=== PATIENT | female | born 1990 | race Caucasian/White ===

== ENCOUNTER 2021-01-16 12:13 | Outpatient (REF) | payer OTHER, SELFPAY | END 2021-01-16 12:14 | disposition home or self-care (01) | LOC: HO.LAB 12:13 | PROVIDERS: Visit Provider Internal Medicine | DX: Z20.822 Contact with and (suspected) exposure to COVID-19 (principal) | CPT/HCPCS: 36415; C9803; U0003; U0005 ==

== ENCOUNTER 2021-03-21 15:04 | Outpatient (REF) | payer OTHER, SELFPAY | END 2021-03-21 15:05 | disposition home or self-care (01) | LOC: HO.LAB 15:04 | PROVIDERS: Visit Provider Internal Medicine | DX: Z20.822 Contact with and (suspected) exposure to COVID-19 (principal) | CPT/HCPCS: C9803; U0003; U0005 ==

== ENCOUNTER 2021-04-05 15:08 | Outpatient (REF) | payer OTHER, SELFPAY ==
[2021-04-05 15:44] LABS: COVID-19 Test Negative (Negative)
== END 2021-04-05 15:09 | disposition home or self-care (01) ==
LOC: HO.LAB 15:08
PROVIDERS: Visit Provider Internal Medicine
DX: Z20.822 Contact with and (suspected) exposure to COVID-19 (principal)
CPT/HCPCS: 36415; 87635; C9803

== ENCOUNTER 2021-11-14 11:36 | Outpatient (REF) | payer OTHER, SELFPAY | END 2021-11-14 11:37 | disposition home or self-care (01) | LOC: HO.LAB 11:36 | PROVIDERS: Visit Provider Internal Medicine | DX: Z13.89 Encounter for screening for other disorder (principal) ==

== ENCOUNTER 2022-02-26 09:20 | Emergency (ER) | payer OTHER, SELFPAY ==
[2022-02-26 09:29] VITALS: BP 116/76; PULSE 102; RESP 18; TEMP 36.6; O2SAT 96; BMI 24.0
[2022-02-26 09:59] LABS: COVID-19 Test Negative (Negative); IDNOW Serial# 16C4AD1C
[2022-02-26 10:06] LABS: IDNOW Serial# 08D9AD1C; Influenza A Positive (Negative); Influenza B2 Negative (Negative); Strep A Nucleic Acid Negative (Negative)
--- NOTE | 2022-02-26 10:09 | ED_ITS ---
HPI - URI/Sore Throat General Chief Complaint: Upper Respiratory Symptoms Stated Complaint: Sore throat/Body aches Time Seen by Provider: 02/26/22 10:09 Source: patient Mode of arrival: ambulatory Limitations: no limitations History of Present Illness HPI Narrative: 31-year-old otherwise healthy female presents to the ER with 1 day of cough, sore throat, headache, body aches and chills. She states her symptoms started late last night and were much worse when she woke up today. She is vaccinated for COVID-19 but not the flu. She denies any known sick contacts. She denies any shortness of breath or chest pain. She is unsure if she has had any fevers but she reports chills and not feeling well. She reports diffuse body aches. She has had some nausea and 1 episode of diarrhea but no vomiting or abdominal pain. MD elicited complaint: fever, sore throat and other (Body aches) Onset (ago): hour(s) (12) Consistency: progressively worsening Severity: moderate Description of mucous: clear Able to tolerate fluids by mouth: Yes Exacerbating factors: nothing Relieving factors: nothing Associated symptoms: chills, myalgias, headache, rhinorrhea, nasal congestion, sore throat, cough, nausea and diarrhea Treatments prior to arrival: none Related Data Previous Rx's Medication Instructions Recorded norelgestromin 150 mcg-e.estradiol 1 patch TRANSDERMAL QWEEK #3 ea 08/10/21 35 mcg/24 hr weekly transderm patch (Xulane) oseltamivir 75 mg capsule (Tamiflu) 75 mg PO BID 5 Days #10 cap 02/26/22 Allergies Allergy/AdvReac Type Severity Reaction Status Date / Time No Known Allergies Allergy Verified 02/26/22 09:29 Review of Systems Review of Systems: Constitutional: No Fever, + Chills ENT/Mouth: + sore throat, + Rhinorrhea, No Swallowing Difficulty Eyes: No Eye Pain, No Swelling, No Redness Cardiovascular: No Chest Pain, No SOB Respiratory: + Cough, No Sputum, No Wheezing, No dyspnea Gastrointestinal: No Nausea, No Vomiting, + Diarrhea, No abdominal Pain Genitourinary: No Dysuria Musculoskeletal: No joint pain, + Myalgias Skin: No Skin Lesions, No rash Neuro: No Weakness, No Numbness, No Dizziness, + Headache Heme/Lymph: No Bruising, No Lymphadenopathy PMFSH Past Medical History Medical History (Updated 02/26/22 @ 10:09 by GISSELLE Chamberlain) No pertinent past medical history Social History Social History Advance Directives: No Advance Directives Information Provided: No Patient : No Physical Exam Vital Signs: Vital Signs: Last Vital Signs Temp 97.8 F 02/26/22 09:29 Pulse 102 H 02/26/22 09:29 Resp 18 02/26/22 09:29 BP 116/76 02/26/22 09:29 Pulse Ox 96 02/26/22 09:29 BMI result Body Mass Index 24.0 Appearance: Alert. Oriented X3. No acute distress. Eyes: Pupils equal, round and reactive to light. ENT: Pharynx with posterior pharyngeal erythema, no tonsillar swelling or exudate. Uvula midline. Normal voice and handling secretions normally. Normal tympanic membranes bilaterally. Neck: Normal inspection. Neck supple. No lymphadenopathy CVS: Normal heart rate and rhythm. Pulses normal. Respiratory: No respiratory distress. Breath sounds normal. Abdomen: Soft and nontender. +BS x4 Skin: Skin warm and dry. Normal skin color. Normal skin turgor. No rashes. Extremities: Normal inspection x4 Neuro: Oriented X 3. Grossly normal, nonfocal Course Course Course Narrative: 31-year-old female otherwise healthy presents to the ER with URI symptoms that started last night. On arrival she is nontoxic appearing with normal vital signs. Her exam reveals some mild posterior pharyngeal erythema but no tonsil lar exudate or swelling to suggest strep throat. Viral swabs were sent and she was found to be influenza A positive. She is in the treatment window for Tamiflu. Will start treatment. Stable for discharge home. Work note provided per request. MDM - URI/Sore Throat Lab Data Labs: Lab Results 02/26/22 02/26/22 02/26/22 Range/Units 09:38 09:38 09:38 COVID-19 (ROSENDA) Negative (Negative) COVID-19 Clin Com See Note Influenza Type A (JADEN) Positive A (Negative) Influenza Type B (JADEN) Negative (Negative) Influenza A & B Note See Note S. pyogenes GrpA JADEN Negative (Negative) Critical Care Time Critical Care Time Critical Care Time: No Discharge Plan Discharge Clinical Impression: Influenza Patient Disposition: Home, Self-Care Instructions: Influenza (DC) Additional Instructions: You tested positive for influenza A. Take the prescribed antiviral medication to help shorten the duration of your illness. Make sure year resting, staying hydrated and taking [id number] cold and flu medications as needed for your symptoms If you develop new or worsening symptoms call 911 or come back to the ER for further evaluation. Prescriptions: New oseltamivir [Tamiflu] 75 mg capsule 75 mg PO BID 5 Days Qty: 10 0RF No Action Xulane 150-35 mcg/24 hr patch weekly 1 patch transdermal QWEEK Qty: 3 3RF Rx Instructions: apply once weekly for 3 weeks of a 4-week cycle Stand Alone Forms: Work/School Release
== END 2022-02-26 10:56 | disposition home or self-care (01) ==
LOC: HO.ED 10:21
PROVIDERS: Emergency Provider Emergency Medicine
DX: J11.1 Influenza due to unidentified influenza virus with other respiratory manifestations (principal); J02.8 Acute pharyngitis due to other specified organisms; M79.10 Myalgia, unspecified site; Z20.822 Contact with and (suspected) exposure to COVID-19; Z79.899 Other long term (current) drug therapy
CPT/HCPCS: 87502; 87635; 87651; 99283

== ENCOUNTER 2022-08-29 15:17 | Outpatient (REF) | payer OTHER, SELFPAY ==
[2022-08-31 21:43] LABS: HPV mRNA E6/E7 rflx Not Detected (Not Detected)
== END 2022-08-29 15:18 | disposition home or self-care (01) ==
LOC: HO.LNP 15:17
PROVIDERS: Visit Provider Advanced Practice Midwife
DX: Z01.419 Encounter for gynecological examination (general) (routine) without abnormal findings (principal); Z11.51 Encounter for screening for human papillomavirus (HPV)
CPT/HCPCS: 87624; 88142

== ENCOUNTER 2022-08-29 15:41 | Outpatient (REF) | payer OTHER, SELFPAY ==
[2022-08-30 02:41] LABS: CT PCR NOT DETECTED (Not Detect.); NG PCR NOT DETECTED (Not Detect.)
[2022-08-30 08:42] LABS: HBc Num1 0.07 S/CO (0.00-0.79); HIV AB/AG Nonreactive (Nonreactive); HIV Num 1 0.07 S/CO (0.00-0.99); Hepatitis B Core Antibody Nonreactive (Nonreactive); ~Hepatitis C Antibody Nonreactive (Nonreactive)
[2022-08-30 09:46] LABS: BV Int Neg Control Negative (Negative); BV Int Pos Control Positive (Positive)
[2022-08-31 06:49] LABS: Syphilis Screen Nonreactive (Nonreactive)
== END 2022-08-29 15:42 | disposition home or self-care (01) ==
LOC: HO.LAB 15:41
PROVIDERS: Visit Provider Advanced Practice Midwife
DX: Z11.3 Encounter for screening for infections with a predominantly sexual mode of transmission (principal); Z11.4 Encounter for screening for human immunodeficiency virus [HIV]; N89.8 Other specified noninflammatory disorders of vagina; Z20.2 Contact with and (suspected) exposure to infections with a predominantly sexual mode of transmission
CPT/HCPCS: 86704; 86780; 86803; 87389; 87480; 87491; 87510; 87591; 87660

== ENCOUNTER 2024-03-06 14:56 | Outpatient (REF) | payer OTHER, SELFPAY ==
[2024-03-07 04:14] LABS: Syphilis Screen Nonreactive (Nonreactive)
[2024-03-07 04:50] LABS: HIV AB/AG Nonreactive (Nonreactive); HIV Num 1 0.05 S/CO (0.00-0.99); Hepatitis B Core Antibody Nonreactive (Nonreactive); ~HepC Num1 0.15 S/CO (0.00-0.79); ~Hepatitis C Antibody Nonreactive (Nonreactive)
== END 2024-03-06 14:57 | disposition home or self-care (01) ==
LOC: HO.LAB 14:56
PROVIDERS: Visit Provider Advanced Practice Midwife
DX: Z01.419 Encounter for gynecological examination (general) (routine) without abnormal findings (principal); Z20.2 Contact with and (suspected) exposure to infections with a predominantly sexual mode of transmission
CPT/HCPCS: 36415; 86704; 86780; 86803; 87389; 99395

== ENCOUNTER 2024-03-06 16:17 | Outpatient (REF) | payer OTHER, SELFPAY ==
[2024-03-07 06:55] LABS: CT PCR NOT DETECTED (Not Detect.); NG PCR NOT DETECTED (Not Detect.)
[2024-03-11 23:18] LABS: HPV mRNA E6/E7 rflx Not Detected (Not Detected)
== END 2024-03-06 16:18 | disposition home or self-care (01) ==
LOC: HO.LNP 16:17
PROVIDERS: Visit Provider Advanced Practice Midwife
DX: Z01.419 Encounter for gynecological examination (general) (routine) without abnormal findings (principal); Z20.2 Contact with and (suspected) exposure to infections with a predominantly sexual mode of transmission
CPT/HCPCS: 0353U; 87624; 88142